=== PATIENT | male | born 1975 | race Two or more races ===

== ENCOUNTER 2019-04-26 09:14 | Inpatient (IN) | payer SELFPAY ==
[~2019-04-26] VITALS: Ht 170.2 cm; Wt 86.2 kg
[2019-04-26] MEDS ORDERED: IBUPROFEN 600MG TABLET PO ONE (11:45)
[2019-04-26 12:02] LABS: HEMATOCRIT. 51.6 % (42.0-52.0); HEMOGLOBIN. 17.7 g/dL (14.0-18.0); MEAN CORPUSCULAR HEMOGLOBIN 31.2 pg (28.0-32.0); MEAN CORPUSCULAR VOLUME 90.6 fL (80.0-94.0); MEAN PLATELET VOLUME 7.4 fl (7.4-10.4); PLATELET 256 x1000/uL (130-400); RED BLOOD CELL COUNT 5.69 mill/uL (4.7-6.1); RED CELL DISTRIBUTION WIDTH 12.8 % (11.6-14.6)
[2019-04-26 12:11] LABS: CHLORIDE 107 mEq/L (98-107)
[2019-04-26 13:03] LABS: PLATELET ESTIMATE NORMAL
[2019-04-26] MEDS ORDERED: MORPHINE SULFATE 4 MG/ML CPJ (NOT FOR IM USE) IV STA (14:00)
[2019-04-26] MEDS ORDERED: ONDANSETRON HCL 4MG/2ML INJ IV STA (14:00)
[2019-04-26] MEDS ORDERED: SODIUM CHLORIDE 0.9% 1000ML BAG (SEPSIS BOLUS) IV ONE (14:00)
[2019-04-26] MEDS ORDERED: IOHEXOL-300 100 ML BOTTLE ONE (14:42)
[2019-04-26 14:43] LABS: PROTHROMBIN TIME 10.5 sec (9.6-11.0)
[2019-04-26] MEDS ORDERED: PIPERACILLIN/TAZ 3.375G PREMIX 50 ML IV ONE (17:00)
[2019-04-26] MEDS ORDERED: VANCOMYCIN 1 G PREMIX 200 ML IV SCH (17:00)
[2019-04-26 17:04] LABS: CLARITY URINE CLEAR (CLEAR); COLOR URINE DARK YELLOW (YELLOW); KETONES URINE TRACE (NEGATIVE); LEUKOCYTE ESTERASE URINE NEGATIVE (NEGATIVE); NITRITE URINE NEGATIVE (NEGATIVE); OCCULT BLOOD URINE NEGATIVE (NEGATIVE); PH URINE 6.5 (4.5-8.0); PROTEIN URINE TRACE (NEGATIVE); SPECIFIC GRAVITY URINE 1.027 (1.005-1.030)
[2019-04-26] MEDS: SODIUM CHLORIDE 0.9% 1,000 ML IV SCH (21:50)
[2019-04-26] MEDS ORDERED: CLONIDINE 0.1MG TABLET PO PRN (22:00)
[2019-04-26] MEDS ORDERED: TEMAZEPAM 15MG CAPSULE PO PRN (22:00)
[2019-04-26] MEDS ORDERED: ONDANSETRON HCL 4MG/2ML INJ IV PRN (22:00)
[2019-04-26] MEDS ORDERED: DIPHENHYDRAMINE 50MG/ML VIAL IV PRN (22:00)
[2019-04-26] MEDS: MORPHINE SULFATE 4 MG/ML CPJ (NOT FOR IM USE) IV PRN (22:38)
[2019-04-26] MEDS: ACETAMINOPHEN 325MG TABLET PO PRN (22:46)
[2019-04-27] MEDS ORDERED: PIPERACILLIN/TAZ 3.375G PREMIX 50 ML IV SCH (02:00)
[2019-04-27] MEDS ORDERED: METRONIDAZOLE 500 MG PREMIX 100 ML IV SCH (03:00)
[2019-04-27 06:06] LABS: HEMATOCRIT. 46.9 % (42.0-52.0); MEAN CORPUSCULAR HEMOGLOBIN 31.1 pg (28.0-32.0); MEAN CORPUSCULAR VOLUME 90.8 fL (80.0-94.0); MEAN PLATELET VOLUME 7.5 fl (7.4-10.4); PLATELET 202 x1000/uL (130-400); RED BLOOD CELL COUNT 5.16 mill/uL (4.7-6.1); RED CELL DISTRIBUTION WIDTH 12.9 % (11.6-14.6)
[2019-04-27 06:14] LABS: CHLORIDE 107 mEq/L (98-107)
[2019-04-27 06:21] LABS: PHOSPHORUS 2.4 mg/dL (2.5-4.9)
[2019-04-27 08:00] VITALS: BP 123/86
[2019-04-27 08:06] LABS: PLATELET ESTIMATE NORMAL
[2019-04-27] MEDS: MORPHINE SULFATE 4 MG/ML CPJ (NOT FOR IM USE) IV PRN ×2 (09:17→18:54)
[2019-04-27 09:32] VITALS: BP 123/86
[2019-04-27] MEDS: FAMOTIDINE 20MG TABLET PO SCH ×2 (11:53→21:59)
[2019-04-27] MEDS: ACETAMINOPHEN 325MG TABLET PO PRN ×2 (11:53→19:35)
[2019-04-27 12:00] VITALS: BP 113/68
[2019-04-27] MEDS: SODIUM CHLORIDE 0.9% 1,000 ML IV SCH ×2 (14:46→18:21)
[2019-04-27] MEDS: PIPERACILLIN/TAZOBACTAM 3.375 G in DEXT 5% WATER 100 ML IV SCH ×2 (14:46→19:30)
[2019-04-27] MEDS: METRONIDAZOLE 500 MG PREMIX 100 ML IV SCH ×2 (14:47→21:59)
[2019-04-27] MEDS ORDERED: PNEUMOCOCCAL 23-VAL P-SAC VAC 0.5 ML IM ONE (15:00)
[2019-04-27] MEDS ORDERED: INFLUENZA VIRUS VACCINE(AFLURIA) 0.5ML SYR IM ONE (15:00)
[2019-04-27 16:00] VITALS: BP 106/63
[2019-04-27 20:00] VITALS: BP 102/59
[2019-04-28] VITALS: BP 105/49
[2019-04-28] MEDS: SODIUM CHLORIDE 0.9% 1,000 ML IV SCH ×2 (00:56→12:46)
[2019-04-28] MEDS: PIPERACILLIN/TAZOBACTAM 3.375 G in DEXT 5% WATER 100 ML IV SCH ×4 (00:56→18:13)
[2019-04-28] MEDS: MORPHINE SULFATE 4 MG/ML CPJ (NOT FOR IM USE) IV PRN ×5 (03:56→20:44)
[2019-04-28 04:00] VITALS: BP 114/74
[2019-04-28] MEDS: METRONIDAZOLE 500 MG PREMIX 100 ML IV SCH ×3 (06:51→22:08)
[2019-04-28 06:54] LABS: HEMATOCRIT. 47.3 % (42.0-52.0); HEMOGLOBIN. 16.2 g/dL (14.0-18.0); MEAN CORPUSCULAR HEMOGLOBIN 30.8 pg (28.0-32.0); MEAN CORPUSCULAR VOLUME 89.9 fL (80.0-94.0); PLATELET 156 x1000/uL (130-400); RED BLOOD CELL COUNT 5.26 mill/uL (4.7-6.1); RED CELL DISTRIBUTION WIDTH 12.6 % (11.6-14.6)
[2019-04-28 07:41] LABS: CHLORIDE 106 mEq/L (98-107)
[2019-04-28] MEDS: FAMOTIDINE 20MG TABLET PO SCH ×2 (09:01→20:22)
[2019-04-28] MEDS ORDERED: POTASSIUM CHLORIDE 20MEQ TABLET SR PO NR ×2 (10:00→20:00)
[2019-04-28 20:00] VITALS: BP 117/82
[2019-04-28] MEDS ORDERED: POTASSIUM CHLORIDE 20MEQ TABLET SR PO ONE (22:00)
[2019-04-28] MEDS: ACETAMINOPHEN 325MG TABLET PO PRN (23:36)
[2019-04-29] VITALS: BP 112/78
[2019-04-29] MEDS: PIPERACILLIN/TAZOBACTAM 3.375 G in DEXT 5% WATER 100 ML IV SCH ×4 (02:22→20:26)
[2019-04-29 04:00] VITALS: BP 123/82
[2019-04-29] MEDS: MORPHINE SULFATE 4 MG/ML CPJ (NOT FOR IM USE) IV PRN ×4 (04:25→22:36)
[2019-04-29] MEDS: METRONIDAZOLE 500 MG PREMIX 100 ML IV SCH ×3 (04:38→21:40)
[2019-04-29 06:13] LABS: HEMATOCRIT. 49.5 % (42.0-52.0); HEMOGLOBIN. 16.9 g/dL (14.0-18.0); MEAN CORPUSCULAR HEMOGLOBIN 30.6 pg (28.0-32.0); MEAN CORPUSCULAR VOLUME 89.7 fL (80.0-94.0); MEAN PLATELET VOLUME 8.2 fl (7.4-10.4); PLATELET 172 x1000/uL (130-400); RED BLOOD CELL COUNT 5.52 mill/uL (4.7-6.1); RED CELL DISTRIBUTION WIDTH 12.7 % (11.6-14.6)
[2019-04-29 06:35] LABS: CHLORIDE 104 mEq/L (98-107)
[2019-04-29 06:43] LABS: PHOSPHORUS 2.4 mg/dL (2.5-4.9)
[2019-04-29 08:00] VITALS: BP 117/87
[2019-04-29] MEDS: FAMOTIDINE 20MG TABLET PO SCH ×2 (08:40→20:26)
[2019-04-29] MEDS ORDERED: POTASSIUM PHOS,M-BASIC-D-BASIC 20 MMOL in DEXT 5% WATER 243.3333 ML IV NR (13:00)
[2019-04-29] MEDS ORDERED: MIDAZOLAM HCL 2 MG/2 ML VIAL ONE (13:21)
[2019-04-29] MEDS ORDERED: DEXAMETHASONE 4MG/ML 1ML VIAL ONE (13:21)
[2019-04-29] MEDS ORDERED: FENTANYL CITRATE/PF 50MCG/ML 2ML VIAL ONE ×2 (13:21→13:34)
[2019-04-29] MEDS ORDERED: PROPOFOL 200MG/20ML VIAL IV ONE (13:21)
[2019-04-29] MEDS ORDERED: ONDANSETRON HCL 4MG/2ML INJ ONE (13:22)
[2019-04-29] MEDS: HYDROMORPHONE HCL/PF 2MG/ML CPJ IV PRN ×5 (14:03→14:56)
[2019-04-29 14:33] LABS: PLATELET ESTIMATE NORMAL
[2019-04-29 16:00] VITALS: BP 111/68
[2019-04-29] MEDS ORDERED: ONDANSETRON HCL 4MG/2ML INJ IV NR (16:00)
[2019-04-29] MEDS: ACETAMINOPHEN 325MG TABLET PO PRN (16:41)
[2019-04-29 17:20] LABS: PLATELET ESTIMATE NORMAL
[2019-04-29 20:00] VITALS: BP 108/71
[2019-04-30] VITALS: BP 105/74
[2019-04-30] MEDS: PIPERACILLIN/TAZOBACTAM 3.375 G in DEXT 5% WATER 100 ML IV SCH ×4 (01:34→18:49)
[2019-04-30] MEDS: MORPHINE SULFATE 4 MG/ML CPJ (NOT FOR IM USE) IV PRN ×3 (03:22→22:19)
[2019-04-30 04:00] VITALS: BP 101/62
[2019-04-30] MEDS: METRONIDAZOLE 500 MG PREMIX 100 ML IV SCH ×3 (05:18→20:19)
[2019-04-30] MEDS: ACETAMINOPHEN 325MG TABLET PO PRN (05:27)
[2019-04-30] MEDS: FAMOTIDINE 20MG TABLET PO SCH ×2 (08:33→20:19)
[2019-04-30 20:00] VITALS: BP 111/68
[2019-05-01] VITALS: BP 129/78
[2019-05-01] MEDS: PIPERACILLIN/TAZOBACTAM 3.375 G in DEXT 5% WATER 100 ML IV SCH ×2 (01:27→06:46)
[2019-05-01] MEDS: MORPHINE SULFATE 4 MG/ML CPJ (NOT FOR IM USE) IV PRN (03:49)
[2019-05-01 04:00] VITALS: BP 122/68
[2019-05-01] MEDS: METRONIDAZOLE 500 MG PREMIX 100 ML IV SCH (05:17)
[2019-05-01] MEDS: ACETAMINOPHEN 325MG TABLET PO PRN (05:40)
[2019-05-01 08:00] VITALS: BP 110/66
[2019-05-01] MEDS: FAMOTIDINE 20MG TABLET PO SCH (08:42)
[2019-05-01 12:00] VITALS: BP 126/86
[2019-05-01 13:00] VITALS: BP 110/66
== END 2019-05-01 13:22 | disposition home or self-care (01) | DRG 710 ==
LOC: ER 09:14 → 6EST 17:06 → EDBEDREQSVC 17:10 → ENRESERV 04-27 08:04 → 6EST 04-27 09:32
PROVIDERS: ADMIT Internal Medicine; ATTEND Internal Medicine
PROC: 0D9P0ZZ Drainage of Rectum, Open Approach (ICD-10-PCS; principal; 2019-04-29)
DX: A41.9 Sepsis, unspecified organism (principal); R65.21 Severe sepsis with septic shock; K76.0 Fatty (change of) liver, not elsewhere classified; K61.2 Anorectal abscess; E87.6 Hypokalemia; K62.89 Other specified diseases of anus and rectum; F17.210 Nicotine dependence, cigarettes, uncomplicated; Z79.899 Other long term (current) drug therapy
CPT/HCPCS: 36415; 71045; 74177; 80048; 80053; 81003; 83605; 83735; 84100; 84145; 85025; 87070; 87077; 87186; 90686; 90732; 93005; 96365; 99291; J1100; J1170; J1200; J2250; J2270; J2405; J2543; J2704; J3010; J3370; J3490; J7030; J7060; Q9967